=== PATIENT | female | born 1975 ===

== ENCOUNTER 2017-07-25 09:02 | Day surgery (SDC) | payer OTHER, SELFPAY ==
[2017-07-25 09:50] LABS: GLUCOSE,POC 141 mg/dL (65-110)
[2017-07-25 10:02] VITALS: RESP 18
[2017-07-25] MEDS ORDERED: Lidocaine 2% Inj (20ml) ONE (10:55)
[2017-07-25 11:43] VITALS: BP 110/62; PULSE 80; TEMP 97; O2SAT 100
--- NOTE | 2017-07-25 11:55 | CP.SDSHP ---
Same Day Surgery H & P - History Proposed Procedure: US guided FNA of right thyroid nodule Pre-Op Diagnosis: right thyroid nodule - Allergies Allergies: Allergies No Known Allergies Allergy (Verified 07/25/17 09:49) - Physical Exam Vital Signs: Vital Signs 07/25/17 07/25/17 09:52 11:20 Temperature 97.6 F 97 F L Pulse Rate 89 80 Respiratory 18 18 Rate Blood Pressure 128/74 110/62 O2 Sat by Pulse 98 100 Oximetry - Impression Impression: Pt with a large right thyroid nodule. Plan US guided FNA. Pt. Evaluated Today:Candidate for Anesthesia & Procedure: No Short Stay Discharge - Short Stay Discharge Admitting Diagnosis/Reason for Visit: NONTOXIC SINGLE THYROID NODULE
--- NOTE | 2017-07-25 11:56 | PCM.SURG1 ---
Surgeon's Initial Post Op Note - Surgeon's Notes Surgeon: Jesse Aviles MD [employer] Worker: none Type of Anesthesia: Local Pre-Operative Diagnosis: right thyroid nodule Operative Findings: Large 4.6 cm right thyroid mixed solid and cystic right lower pole thyroid nodule Post-Operative Diagnosis: right thyroid nodule Operation Performed: US guided FNA Specimen/Specimens Removed: 5 pases with a 25 g needle Estimated Blood Loss: EBL {In ML}: 1 Blood Products Given: N/A Drains Used: No Drains Post-Op Condition: Good Date of Surgery/Procedure: 07/25/17 Time of Surgery/Procedure: 11:05
== END 2017-07-25 11:45 | disposition home or self-care (01) ==
LOC: C.SPRAD 09:02
PROVIDERS: ATTEND Radiology Vascular & Interventional Radiology
DX: E04.1 Nontoxic single thyroid nodule (principal)